=== PATIENT | female | born 1995 | race Caucasian/White ===

== ENCOUNTER 2024-03-09 19:54 | Emergency (ER) | payer MEDICAID ==
[~2024-03-09] VITALS: Ht 160 cm; Wt 72.7 kg
[2024-03-09] MEDS: oxyCODONE IR 5mg (immed. release) tablet PO STA (20:28)
[2024-03-09] MEDS: ketorolac trometh 30MG/ML vial 30 MG/ML VIAL IM STA (20:28)
[2024-03-09 21:57] VITALS: BP 142/82; PULSE 89; RESP 18; TEMP 98.6; O2SAT 96
== END 2024-03-09 21:58 | disposition home or self-care (01) ==
LOC: ER 19:55
DX: S83.094A Other dislocation of right patella, initial encounter (principal); M25.561 Pain in right knee; X58.XXXA Exposure to other specified factors, initial encounter; Y93.72 Activity, wrestling; Y92.89 Other specified places as the place of occurrence of the external cause; Y99.8 Other external cause status
CPT/HCPCS: 29505; 73560; 96372; 99283; J1885; A6449